=== PATIENT | male | born 1970 | race American Indian/Alaskan Native ===

== ENCOUNTER 2021-10-22 15:58 | Emergency (ER) | payer SELFPAY ==
[2021-10-22] MEDS ORDERED: FLUORESCEIN 1 MG STRIP OP ONE (17:12)
[2021-10-22] MEDS ORDERED: TETRACAINE 0.5% OPHTH SOLN 4ML OU ONE (17:14)
--- NOTE | 2021-10-22 17:28 | Emergency Department Report ---
ED Eye Problem HPI - General Stated complaint: LT EYE PAIN Source: EMS Mode of arrival: Ambulatory Limitations: No Limitations - History of Present Illness Initial comments: 51-year-old male past medical history hypertension, diabetes, seizures reports to the ER with complaints of left eye pain after washing dishes yesterday at work and at home. Patient denies any injury to left eye, unsure if object has gotten into left eye. Patient does report some blurred vision. Denies any vision loss. Denies headache. Patient reports no other symptoms. - Related Data Previous Rx's Medication Instructions Recorded Last Taken Type Erythromycin [Erythromycin Ophth 1 applic OS Q6HR 7 Days #1 tube 10/22/21 Unknown Rx Oint] Allergies Allergy/AdvReac Type Severity Reaction Status Date / Time No Known Allergies Allergy Verified 10/22/21 16:16 ED Review of Systems ROS: Stated complaint: LT EYE PAIN Other details as noted in HPI Constitutional: denies: chills, fever Eyes: eye pain, other (Blurry vision left eye). denies: eye discharge, vision change ENT: denies: ear pain, throat pain Respiratory: denies: cough, shortness of breath, wheezing Cardiovascular: denies: chest pain, palpitations Endocrine: no symptoms reported Gastrointestinal: denies: abdominal pain, nausea, diarrhea Genitourinary: denies: urgency, dysuria Musculoskeletal: denies: back pain, joint swelling, arthralgia Skin: denies: rash, lesions Neurological: denies: headache, weakness, paresthesias Psychiatric: denies: anxiety, depression Hematological/Lymphatic: denies: easy bleeding, easy bruising ED Past Medical Hx - Past Medical History Previous Medical History?: Yes Hx Hypertension: Yes Hx Diabetes: Yes Hx Seizures: Yes - Medications Home Medications: Home Medications Medication Instructions Recorded Confirmed Last Taken Type Erythromycin [Erythromycin Ophth 1 applic OS Q6HR 7 Days #1 tube 10/22/21 Unknown Rx Oint] ED Physical Exam - General Limitations: No Limitations General appearance: alert, in no apparent distress - Head Head exam: Present: atraumatic, normocephalic - Eye Eye exam: Present: normal appearance, PERRL, conjunctival injection (Left thigh). Absent: periorbital swelling, periorbital tenderness Pupils: Present: normal accommodation - ENT ENT exam: Present: mucous membranes moist - Neck Neck exam: Present: normal inspection - Respiratory Respiratory exam: Present: normal lung sounds bilaterally. Absent: respiratory distress - Cardiovascular Cardiovascular Exam: Present: regular rate, normal rhythm. Absent: systolic murmur, diastolic murmur, rubs, gallop - GI/Abdominal GI/Abdominal exam: Present: soft, normal bowel sounds - Rectal Rectal exam: Present: deferred - Extremities Exam Extremities exam: Present: normal inspection - Back Exam Back exam: Present: normal inspection - Neurological Exam Neurological exam: Present: alert, oriented X3 - Psychiatric Psychiatric exam: Present: normal affect, normal mood - Skin Skin exam: Present: warm, dry, intact, normal color. Absent: rash ED Course Vital Signs 10/22/21 16:09 Temperature 98.4 F Pulse Rate 76 Respiratory 16 Rate Blood Pressure 104/64 [Left] O2 Sat by Pulse 98 Oximetry ED Medical Decision Making - Medical Decision Making 51-year-old with complaints of left thigh pain after leaving work yesterday. Reports no injury to left thigh. Left thigh with conjunctival that is injected. No foreign body noted. Visual acuityright eye 20/40, left eye blurred vision unable to obtain, bilateral 20/40 Clear drainage from left eye noted No rust ring noted Unable to obtain a Richardson lamp in the ER department here at [facility] has checked several times throughout the department has even notified charge nurse and attending of unable to find with lab. No slit lamp is at this ER is disposable. Patient will be started on erythromycin ointment. Patient agrees with plan of care and verbalized understanding. Patient will follow outpatient ophthalmology if symptoms continue. Differential diagnosis Conjunctivitis versus possible corneal abrasion due to unknown source. Vital Signs 10/22/21 16:09 Temperature 98.4 F Pulse Rate 76 Respiratory 16 Rate Blood Pressure 104/64 [Left] O2 Sat by Pulse 98 Oximetry BP at the time of discharge is 130/90 with a heart rate of 77. His left eye vision has improved slightly with a reading of 20/125. Patient does report improvement in left eye vision. Critical care attestation.: If time is entered above; I have spent that time in minutes in the direct care of this critically ill patient, excluding procedure time. ED Disposition Clinical Impression: Redness of eye, left, Conjunctivitis, bacterial Disposition: HOME / SELF CARE / HOMELESS Is pt being admited?: No Condition: Stable Instructions: Bacterial Conjunctivitis, Adult, [id number], Bacterial Conjunctivitis, Adult, How to Use Eye Drops and Eye Ointments Prescriptions: Erythromycin [Erythromycin Ophth Oint] 1 applic OS Q6HR 7 Days #1 tube Referrals: PRIMARY CAREMD [Primary Care Provider] - 3-5 Days AMANDA BURNETTE MD [Staff Physician] - 3-5 Days Forms: Work/School Release Form(ED) Time of Disposition: 18:36
[2021-10-22] MEDS ORDERED: HYDROcodone/ACETAMINOPHEN 5-325 MG TAB PO ONE (18:36)
[2021-10-22 18:56] VITALS: BP 130/90
[2021-10-22] MEDS ORDERED: ERYTHROMYCIN 5 MG/1 GM OPHTH OINT OS ONE (19:00)
== END 2021-10-22 18:56 | disposition home or self-care (01) ==
LOC: ED 15:58
DX: H10.9 Unspecified conjunctivitis (principal); I10 Essential (primary) hypertension; E11.9 Type 2 diabetes mellitus without complications; Z86.69 Personal history of other diseases of the nervous system and sense organs; Z79.899 Other long term (current) drug therapy
CPT/HCPCS: 99283

== ENCOUNTER 2021-12-31 07:30 | Emergency (ER) | payer SELFPAY ==
[2021-12-31] MEDS ORDERED: levETIRAcetam 1000 MG/NS 0.75% 1,000 MG/100 ML BAG IV ONE (07:43)
--- NOTE | 2021-12-31 07:50 | Emergency Department Report ---
ED Seizure HPI - General Stated Complaint: SEIZURE Time Seen by Provider: 12/31/21 07:42 - History of Present Illness Initial Comments: Patient is a 51-year-old male with known history of seizures presenting to ED via EMS status post seizure. Shortly after arrival patient had another seizure while in the bathroom. - Related Data Previous Rx's Medication Instructions Recorded Last Taken Type Erythromycin [Erythromycin Ophth 1 applic OS Q6HR 7 Days #1 tube 10/22/21 Unknown Rx Oint] Allergies Allergy/AdvReac Type Severity Reaction Status Date / Time No Known Allergies Allergy Verified 10/22/21 16:16 ED Review of Systems ROS: Stated complaint: SEIZURE Other details as noted in HPI Comment: Unobtainable due to pts medical conditions ED Past Medical Hx - Past Medical History Hx Hypertension: Yes Hx Diabetes: Yes Hx Seizures: Yes - Medications Home Medications: Home Medications Medication Instructions Recorded Confirmed Last Taken Type Erythromycin [Erythromycin Ophth 1 applic OS Q6HR 7 Days #1 tube 10/22/21 Unknown Rx Oint] ED Physical Exam - General General appearance: postictal - Head Head exam: Present: atraumatic, normocephalic - Respiratory Respiratory exam: Present: normal lung sounds bilaterally. Absent: respiratory distress - Cardiovascular Cardiovascular Exam: Present: normal rhythm, tachycardia, normal heart sounds - GI/Abdominal GI/Abdominal exam: Present: soft. Absent: distended - Rectal Rectal exam: Present: deferred - Neurological Exam Neurological exam: Present: altered (Postictal) - Skin Skin exam: Present: warm, dry, intact, normal color ED Course Vital Signs 12/31/21 12/31/21 12/31/21 07:31 08:00 08:16 Temperature 98.2 F Pulse Rate 105 H 121 H 124 H Respiratory 14 27 H 27 H Rate Blood Pressure 125/77 130/81 Blood Pressure 131/81 [Left] O2 Sat by Pulse 98 97 92 Oximetry 12/31/21 12/31/21 12/31/21 08:30 08:46 09:00 Temperature Pulse Rate 120 H 107 H 108 H Respiratory 26 H 22 23 Rate Blood Pressure 144/92 130/81 138/84 Blood Pressure [Left] O2 Sat by Pulse 89 99 100 Oximetry 12/31/21 12/31/21 12/31/21 09:16 09:30 09:46 Temperature Pulse Rate 114 H 125 H 109 H Respiratory 22 20 21 Rate Blood Pressure 144/92 138/85 143/88 Blood Pressure [Left] O2 Sat by Pulse 100 100 99 Oximetry 12/31/21 12/31/21 12/31/21 10:00 10:16 10:30 Temperature Pulse Rate 102 H 102 H 100 H Respiratory 24 23 20 Rate Blood Pressure 135/84 142/84 131/81 Blood Pressure [Left] O2 Sat by Pulse 100 100 100 Oximetry 12/31/21 12/31/21 12/31/21 10:46 10:57 11:00 Temperature Pulse Rate 106 H 97 H 99 H Respiratory 22 17 21 Rate Blood Pressure 129/83 139/86 Blood Pressure 146/86 [Left] O2 Sat by Pulse 98 97 95 Oximetry 12/31/21 12/31/21 12/31/21 11:16 11:30 11:46 Temperature Pulse Rate 97 H 94 H 97 H Respiratory 19 20 21 Rate Blood Pressure 134/83 134/83 145/80 Blood Pressure [Left] O2 Sat by Pulse 94 98 98 Oximetry 12/31/21 12/31/21 12/31/21 12:00 12:16 12:30 Temperature Pulse Rate 100 H 91 H 113 H Respiratory 18 19 19 Rate Blood Pressure 140/86 140/87 149/87 Blood Pressure [Left] O2 Sat by Pulse 99 100 97 Oximetry ED Medical Decision Making - Lab Data Result diagrams: 12/31/21 08:23 12/31/21 08:23 - Medical Decision Making Patient limited with IV Keppra. CBC and CMP reviewed. No major abnormalities noted. Patient monitored in ED until back to baseline. Complains of headache. He was given IV morphine and Toradol. States he takes Keppra 1000 mg twice daily. I encouraged him to increase his dosage to 1500 twice daily and follow- up with his PCP at earliest convenience. Critical care attestation.: If time is entered above; I have spent that time in minutes in the direct care of this critically ill patient, excluding procedure time. ED Disposition Clinical Impression: Seizure Disposition: 01 HOME / SELF CARE / HOMELESS Is pt being admited?: No Condition: Stable Instructions: Seizure, Adult, [id number] Time of Disposition: 13:55
[2021-12-31] MEDS ORDERED: SODIUM CHLORIDE 0.9% 1000 ML 1,000 ML IV ONE (07:53)
[2021-12-31] MEDS ORDERED: MIDAZOLAM 5 MG/5 ML INJ MDV IV NR (08:00)
[2021-12-31 08:42] LABS: Hematocrit 35.9 % (35.5-45.6); Hemoglobin 11.9 gm/dl (11.8-15.2); Mean Corpuscular HGB Conc 33 % (32-34); Mean Corpuscular Volume 101 fl (84-94); Platelet Count 117 K/mm3 (140-440); Red Blood Count 3.57 M/mm3 (3.65-5.03)
[2021-12-31 09:03] LABS: Alanine Aminotransferase 74 units/L (7-56); Albumin 4.5 g/dL (3.9-5); BUN/Creatinine Ratio 6; Blood Urea Nitrogen 6 mg/dL (9-20); Calcium 8.6 mg/dL (8.4-10.2); Hemolysis Index 2
[2021-12-31] MEDS ORDERED: KETOROLAC 30 MG/1 ML INJ IV ONE (09:32)
--- NOTE | 2021-12-31 10:58 | Electrocardiograph Report ---
[facility] Test Date: 2021-12-31 Test Time: 07:45:28 Pat Name: ESSENCE WOLFF Department: Room: Gender: M [employer]: : 1970 Requested By: RASTA GAMINO Order Number: [id number] Reading MD: Tony Banegas Measurements Intervals [place] Rate: 121 P: 81 MD: 154 QRS: 37 QRSD: 89 T: 55 QT: 308 QTc: 437 Interpretive Statements Sinus tachycardia No previous ECG available for comparison Electronically Signed On 12-31-2021 10:58:21 EDT by Tony Banegas
[2021-12-31] MEDS ORDERED: MORPHINE 4 MG/1 ML INJ IV ONE (12:42)
[2021-12-31 15:10] VITALS: BP 146/86
== END 2021-12-31 14:42 | disposition home or self-care (01) ==
LOC: ED 07:30
DX: R56.9 Unspecified convulsions (principal); I10 Essential (primary) hypertension; E11.9 Type 2 diabetes mellitus without complications
CPT/HCPCS: 36415; 80053; 85027; 93005; 96374; 96375; 99284; J1885; J1953; J2250; J7030; 96365